=== PATIENT | female | born 1955 | race Caucasian/White ===

== ENCOUNTER 2022-11-23 05:52 | Day surgery (SDC) | payer MEDICARE ==
[2022-11-22 11:13] VITALS: BMI 26.5
[2022-11-23] MEDS ORDERED: PROPOFOL 40 ML ONE (07:03)
[2022-11-23] MEDS ORDERED: Lidocaine 1% PF 5 ML VIAL ONE (07:03)
[2022-11-23] MEDS ORDERED: Ondansetron PF 4 MG/2 ML Vial ONE (07:03)
[2022-11-23] MEDS ORDERED: Dexamethasone 4 mg/ml Vial ONE (07:03)
[2022-11-23] MEDS ORDERED: PROPOFOL 20 ML ONE (07:47)
== END 2022-11-23 08:50 | disposition home or self-care (01) ==
LOC: CSHSDC 05:52
PROVIDERS: ATTEND Surgery
PROC: 0DJD8ZZ Inspection of Lower Intestinal Tract, Via Natural or Artificial Opening Endoscopic (ICD-10-PCS; principal; 2022-11-23)
DX: Z12.11 Encounter for screening for malignant neoplasm of colon (principal); K57.30 Diverticulosis of large intestine without perforation or abscess without bleeding; F41.9 Anxiety disorder, unspecified; I12.9 Hypertensive chronic kidney disease with stage 1 through stage 4 chronic kidney disease, or unspecified chronic kidney disease; N18.9 Chronic kidney disease, unspecified; Z79.899 Other long term (current) drug therapy; Z88.8 Allergy status to other drugs, medicaments and biological substances
CPT/HCPCS: J1100; J2405; J2704